=== PATIENT | female | born 1970 | race Caucasian/White ===

== ENCOUNTER 2024-04-18 16:22 | Emergency (ER) | payer OTHER, SELFPAY ==
[2024-04-18] VITALS (8 sets, daily range): BP systolic 103–147; BP diastolic 52–84; PULSE 55–83; RESP 10–18; TEMP 36.8; O2SAT 96–99
--- NOTE | ~2024-04-18 | CT_ITS ---
EXAMINATION: CT abdomen pelvis w con DATE: 04/18/2024 17:28 INDICATION: Blood in stool. Low abdominal pain. TECHNIQUE: Computed tomography (CT) of the abdomen and pelvis was performed with 100 mL Omnipaque 350 intravenous contrast. Automated exposure control and iterative reconstruction technique were employe d. The dose-length product was 1048.85 mGy-cm. COMPARISON: None. FINDINGS: The visualized portions of lung bases demonstrate mild atelectasis. No pleural effusion. Th e heart size is normal. No pericardial effusion. The liver is normal. There are changes of cholecyste ctomy. Calcifications in the spleen are consistent with old granulomatous disease. The pancreas and a drenal glands are normal. There is cortical thinning of the kidneys. There are cysts in the kidneys m easuring up to 4.5 cm on the left. There are few diverticula in the colon. There is wall thickening o f the sigmoid and descending colon with surrounding fat stranding, consistent with colitis. There is no significant stenosis of celiac axis, superior mesenteric artery, or inferior mesenteric artery. Th ere is a supraumbilical ventral hernia containing fat. The appendix is normal. There are no pathologi indira enlarged lymph nodes. There is trace ascites in left paracolic gutter. There is severe lumbar s pondylosis and moderate thoracic spondylosis. IMPRESSION: 1. Colitis involving descending and sigmoid colon. Reviewed, dictated and finalized at location E.
[2024-04-18 16:59] LABS: Basophils Absolute Auto 0.1 K/mm3 (0.0-0.1); Basophils Percent Auto 0.4 % (0.2-1.2); Eosinophils Absolute Auto 0.1 K/mm3 (0-0.3); Eosinophils Percent Auto 0.4 % (0-4.4); Hematocrit 46.2 % (37.0-47.0); Hemoglobin 14.9 g/dL (12.0-15.0); Immature Granulocyte Absolute 0.05 K/mm3 (0.00-0.031); Immature Granulocyte Percent A 0.3 % (0-0.5); Mean Corpuscular HGB Conc 32.3 g/dl (32-36); Mean Corpuscular Hemoglobin 29.3 pg (26-34); Mean Corpuscular Volume 90.8 fl (80-100); Mean Platelet Volume 10.1 fl (7.4-10.4); Monocytes Absolute Auto 0.9 K/mm3 (0.1-0.6); Monocytes Percent Auto 6.1 % (2.6-8.5); Neutrophils Absolute Auto 11.6 K/mm3 (1.3-6.7); Neutrophils Percent Auto 75.8 % (45.5-73.1); Platelet Count Result 269 k/mm3 (150-375); Red Blood Count 5.09 M/mm3 (4.2-5.4); Red Cell Distribution Width 14.6 % (11.5-14.5); White Blood Count 15.3 K/mm3 (4.5-10.0)
[2024-04-18 17:07] LABS: Lactic Acid Reflex 1.6 mmol/L (0.7-2.0)
[2024-04-18 17:08] LABS: Alanine Aminotransferase 25 U/L (6-35); Albumin Level 4.9 g/dL (3.5-5.1); Alkaline Phosphatase 83 U/L (38-126); Anion Gap 7 mmol/L (4-12); Aspartate Amino Transferase 26 U/L (14-36); Bilirubin,Total 0.7 mg/dL (0.2-1.3); Blood Urea Nitrogen 12 mg/dL (7-17); Calcium 9.8 mg/dL (8.4-10.2); Carbon Dioxide 29 mmol/L (22-30); Chloride 104 mmol/L (98-107); Estimated CRCL calculation 84 ml/min; Estimated Glomerular Filt Rate > 60; Glucose 109 mg/dL (65-110); Lipase 62 U/L (23-300); Potassium 4.2 mmol/L (3.4-5.0); Sodium 140 mmol/L (137-145)
[2024-04-18] MEDS: SODIUM CHLORIDE 0.9% IV 3,000 ML 999 ML IV CONT (19:46)
[2024-04-18 20:01] LABS: Appearance Urine Clear (Clear); Bacteria Urine 1+ /hpf; Bilirubin Urine Negative (Negative); Blood Urine 2+ (Negative); Color Urine Yellow (Yellow); Glucose Urine UA Negative (Negative); Ketones Urine Negative (Negative); Leukocyte Esterase Ur Negative LEU/UL (Negative); Need Manual Microscopic Reviewed; Nitrate Urine Negative (Negative); Non Pathogenic Casts 0-2; Protein Urine Negative (Negative); Squamous Epithelial Cell Urine Occasional /hpf (Few); Urobilinogen Urine 0.2 mg/dL (<2.0); WBC Urine 0-5 /hpf (0-3); pH Urine 6.5 (5.0-9.0)
[2024-04-18 20:04] LABS: Add Urine Microscopic? YES
[2024-04-18] MEDS: ONDANSETRON INJ 4 MG/2 ML VIAL IV PUSH (20:06)
[2024-04-18] MEDS: HYDROmorphone HCL INJ (*CRX) 1 MG/ML SYR 0.5 MG IV PUSH (20:06)
--- NOTE | 2024-04-18 20:36 | ED.GENADULT ---
HPI - General Adult General Chief complaint: Abdominal Pain Stated complaint: abd pain Time Seen by Provider: 04/18/24 19:22 History of Present Illness HPI narrative: This is a 53 year female presenting ED with chief abdominal pain patient said that after she ate dinner last night she developed severe crampy abdominal pain. She then had significant diarrhea which then converted to richelle blood. Patient has had some nausea but no vomiting. she denies fever chills chest pain difficulty breathing.She traveled to [place] in early March did not drink from any questionable water sources. No recent antibiotic use. No history of C diff. Related Data Allergies Allergy/AdvReac Type Severity Reaction Status Date / Time trazodone Allergy Mild Unknown Verified 12/16/22 15:15 codeine Allergy Unknown Nausea and Verified 12/16/22 15:15 Vomiting baclofen AdvReac Hallucinati Verified 04/18/24 19:46 ng tramadol AdvReac Nausea and Verified 04/18/24 19:46 Vomiting Exam Narrative: APPEARANCE: No apparent distress. Head: atraumatic. EYES: EOMI, NOSE: Atraumatic NECK: Trachea midline RESPIRATORY: No increased rate of breathing CARDIOVASCULAR: RRR, ABDOMINAL: Tenderness palpation of the left lower quadrant without guarding or rebound. MUSCULOSKELETAl: No obvious deformities NEURO: Alert. Moving 4/4 extremities SKIN:: Warm, dry. Normal color PSYCHIATRIC: Normal affect Course Vital Signs Vital signs: Vital Signs Temperature 98.2 F 04/18/24 16:28 Pulse Rate 83 04/18/24 16:28 Respiratory Rate 16 04/18/24 16:28 Blood Pressure 147/84 H 04/18/24 16:28 Pulse Oximetry 99 04/18/24 16:28 Temperature 98.2 F 04/18/24 16:28 Pulse Rate 61 04/18/24 20:01 Respiratory Rate 18 04/18/24 20:01 Blood Pressure 141/74 H 04/18/24 20:01 Pulse Oximetry 99 04/18/24 20:01 Medical Decision Making [facility] Narrative Medical decision making narrative: -Course: 53-year-old female presenting with left lower quadrant pain and bloody diarrhea. White count 15. Brown stool with specks of blood on digital rectal exam. CT shows colitis. Vital signs stable. Patient has no systemic signs of illness. She feels well overall. She is tolerating p.o.. We discussed admission versus discharge. Patient would like to trial a course of outpatient antibiotics and return if her condition was to worsen. I explained the risks and benefits and patient is in agreement. 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 She has been given return precautions. -DDX includes but is not limited to: Gastroenteritis, diverticulitis, colitis -Independent interpretation of studies: white count 15.3. Lactic normal. CT showed colitis of the descending and sigmoid colon. kidney function at baseline. Independent EKG interpretation: Rhythm [sinus], Rate [56], [place] -[normal], [place] -[normal], QRS [narrow], QTC 417, T waves -[negative for concerning inversions], ST Segments - [Negative for concerning elevations] Final interpretations: sinus bradycardia, no QT prolongation -Interventions: 3 L NS, .5 mg dilaudid, 4mg zofran, Cipro 500mg -Shared decision making / Disposition: Discussed admission versus discharge the patient will trial a course of outpatient antibiotics. -RX Cipro 500 mg b.i.d. times days, zofran, oxycodone Vital Signs Vital Signs: Vital Signs Temperature 98.2 F 04/18/24 16:28 Pulse Rate 83 04/18/24 16:28 Respiratory Rate 16 04/18/24 16:28 Blood Pressure 147/84 H 04/18/24 16:28 Pulse Oximetry 99 04/18/24 16:28 Temperature 98.2 F 04/18/24 16:28 Pulse Rate 61 04/18/24 20:01 Respiratory Rate 18 04/18/24 20:01 Blood Pressure 141/74 H 04/18/24 20:01 Pulse Oximetry 99 04/18/24 20:01 Lab Data 04/18/24 16:49 04/18/24 16:49 Labs: Lab Results 04/18/24 04/18/24 Range/Units 16:49 19
--- NOTE | 2024-04-18 21:05 | ECG_ITS ---
Test Date: 2024-04-18 21:23:14 Measurements Intervals [place] Rate: 56 P: 60 [place]: 166 QRS: -2 QRSD: 86 T: 59 QT: 432 QTc: 417 Interpretive Statements SINUS BRADYCARDIA OTHERWISE NORMAL ELECTROCARDIOGRAM No previous ECG available for comparison Electronically Signed On 04-19-2024 07:26:43 CDT by Salazar Camp M.D.
[2024-04-18] MEDS: CIPROFLOXACIN 500 MG TAB PO (21:32)
--- NOTE | 2024-04-18 21:44 | PC.NURSE ---
pt able to tolerate water po and abx po. edp dr. gallegos aware.
== END 2024-04-18 22:53 | disposition home or self-care (01) ==
PROVIDERS: Emergency Medicine; Emergency Provider Emergency Medicine; PCP Physician Assistant
DX: K52.9 Noninfective gastroenteritis and colitis, unspecified (principal)
CPT/HCPCS: 36415; 74177; 80053; 81001; 83605; 83690; 85025; 93005; 96361; 96374; 96375; 99284; A9270; J1170; J2405; J7030; Q9967